=== PATIENT | male | born 1990 | race Asian ===

== ENCOUNTER 2019-02-10 16:02 | Emergency (ER) | payer SELFPAY ==
[~2019-02-10] VITALS: Ht 180.3 cm; Wt 68.0 kg
[2019-02-10 16:23] VITALS: BP 110/69
== END 2019-02-10 18:09 | disposition home or self-care (01) ==
LOC: ER 16:06
DX: M79.644 Pain in right finger(s) (principal)
CPT/HCPCS: 29125; 73140; 99283; J7030